=== PATIENT | female | born 1985 | race African-American/Black ===

== ENCOUNTER → 2016-06-14 | Emergency (ER) | payer SELFPAY ==
[~2016-06-14] VITALS: Ht 165.1 cm; Wt 95.3 kg
[~2016-06-14] MED LIST: AZITHROMYCIN 250 MG TABLET. PO ONE; CEFTRIAXONE 1GM IVPB FOR OMNI 50 ML IV ONE; CONTRAST GIVEN MC PRN; IOHEXOL 300 MG/ML 75 ML VIAL IV ONE; IV NORMAL SALINE 1000ML BAG 1,000 ML IV SCH; KETOROLAC TROMETHAMINE 30 MG/ML INJ. IV ONE; ONDANSETRON PF 4 MG/2 ML VIAL. IV ONE
[2016-06-14 04:59] VITALS: BP 145/96
[2016-06-14 05:19] LABS: BILIRUBIN,URINE NEGATIVE (NEG); GLUCOSE,URINE NEGATIVE (NEG); NITRITE,URINE NEGATIVE (NEG); PH,URINE 6.5; PROTEIN,URINE NEGATIVE (NEG-TRACE); UROBILINOGEN,URINE 0.2 mg/dL (0.2 mg/dL)
[2016-06-14 05:26] LABS: BASO # 0.2 x10^3/uL (0.0-0.2); BASO % 3 % (0-3); EOS % 0 % (0-3); HEMATOCRIT 36.6 % (36.0-47.0); LYMPH # 1.8 x10^3/uL (1.0-4.8); LYMPH % 31 % (24-48); MEAN CORPUSCULAR HEMOGLOBIN 27 pg (25-35); MEAN CORPUSCULAR HGB CONC 33 g/dL (31-37); MEAN CORPUSCULAR VOLUME 84 fL (79-100); MONO % 10 % (0-9); NEUT % 56 % (31-73); PLATELET COUNT 268 x10^3/uL (140-400); RED BLOOD COUNT 4.37 x10^6/uL (3.50-5.40); RED CELL DISTRIBUTION WIDTH 16.1 % (11.5-14.5); WHITE BLOOD COUNT 5.6 x10^3/uL (4.0-11.0)
[2016-06-14 05:30] LABS: CALCIUM 8.6 mg/dL (8.5-10.1); CREATININE 0.8 mg/dL (0.6-1.0); GFR 101.2; POTASSIUM 4.3 mmol/L (3.5-5.1)
[2016-06-14 05:32] LABS: BACTERIA,URINE FEW /HPF (0-FEW); RBC,URINE OCC /HPF (0-2); SQUAMOUS EPITHELIAL CELL,UR FEW /LPF
[2016-06-14 05:32] LABS: NEG OBC SER NEG; POS OBC SER POS
[2016-06-14 05:36] LABS: ALBUMIN 3.2 g/dL (3.4-5.0); ALBUMIN/GLOBULIN RATIO 0.7 (1.0-1.7); TOTAL BILIRUBIN 0.3 mg/dL (0.2-1.0); TOTAL PROTEIN 7.5 g/dL (6.4-8.2)
--- NOTE | 2016-06-14 06:38 | RAD ---
INDICATION: Abdomen pain. COMPARISON: None TECHNIQUE: Axial CT images obtained through the abdomen and pelvis. Intravenous contrast was utilized. One or more of the following individualized dose reduction techniques were utilized for this examination: 1. Automated exposure control; 2. Adjustment of the mA and/or kV according to patient size; 3. Use of iterative reconstruction technique. FINDINGS: Abdominal aorta not aneurysmal. No intrahepatic bile duct dilation. No peripancreatic edema. Spleen unremarkable. No hydronephrosis. No definite evidence of small bowel obstruction. Bladder unremarkable within limits of CT. The appendix is not well seen in its entirety. The uterus has a heterogenous appearance. Suspected exophytic mass off right anterior aspect of uterus with some calcifications within measuring up to about 45 millimeters. There is also a low attenuation region at the lower uterine segment versus adnexa on the right measuring up to 44 millimeters. IMPRESSION: No evidence of bowel obstruction. There is an apparent heterogenous mass off the anterior aspect of the uterus. Most common cause would be a fibroid. In addition there is a region of low-attenuation on either off of the lower uterine segment on the right or within the right adnexal region. These findings could be secondary to fibroids but pelvic ultrasound with transabdominal and transvaginal imaging could further evaluate and to ensure that there is not adnexal origin of the region of low-attenuation on the right. There is sclerosis adjacent to the left greater than right sacroiliac joint. Would correlate with symptoms of chronic sacroiliitis. Electronically signed by: Maxime Hamilton (Jun 14, 2016 06:36:48)
--- NOTE | 2016-06-14 07:25 | PHYS DOC ---
Past Medical History Past Medical History: No Pertinent History Past Surgical History: , Tubal ligation Alcohol Use: None Drug Use: None Adult General Chief Complaint Chief Complaint: ABDOMINAL PAIN HPI HPI Patient is a 31 year old female who presents here today complaining of right lower quadrant abdominal pain. Patient is concerned that she might have contracted an STD from her ex-boyfriend. Patient reports that she had broken up with her boyfriend however they got together and had sexual intercourse approximately 2-3 days ago. Patient reports she's not sure who he has been sleeping with 2 she is concerned that she might have contracted an STD from him. Patient denies any other symptomatology at this time. Patient has any fevers shakes chills nausea vomiting diarrhea dysuria frequency or urgency. Patient denies any vaginal discharge or vaginal bleeding. Patient's last menstrual period was May 25. Patient reports that she been tolerating by mouth as well. Patient's last by mouth intake was dinner time she ate some pork. Patient denies any history significant for hypertension diabetes liver longer kidney problems. Patient has had no surgeries other than in the past. Patient smokes she does not drink or do any drugs and is not allergic to any medications. Patient reports she has not had any STDs in the past. Patient's physical exam was unremarkable in the ER. Patient's pelvic exam was significant for some mild tenderness to palpation in her uterus. Patient did not have any cervical motion tenderness. Patient no adnexal masses or tenderness. There is no significant discharge from her cervical os or vaginal vault. She his abdomen was soft nondistended no rebound or guarding. Patient had mild tenderness to right lower quadrant. Patient is not exhibiting any signs or symptoms of be consistent with an acute surgical abdomen. Patient's ER workup was essentially unremarkable. Patient's pelvic exam was performed and cultures were sent. Given patient's concerned she was offered the option to receive empiric antibiotics here and wait until the cultures return. Patient is requesting to receive empiric antibiotics prior to being discharged from the ED. Patient was given IV Rocephin 1 g and Zithromax 1 g by mouth. Patient will be discharged home in stable condition to follow up with her primary care doctor for any further problems. Review of Systems Review of Systems Constitutional: Denies fever or chills [] Eyes: Denies change in visual acuity, redness, or eye pain [] HENT: Denies nasal congestion or sore throat [] All other review systems are negative except as documented in history of present illness portion. Current Medications Current Medications Current Medications Medications (Trade) Dose Ordered Sig/Edison Start Time Stop Time Status Last Admin Dose Admin Info (Do NOT chart on this entry -- for MONITORING) 1 each PRN DAILY PRN 06/14/16 05:15 06/16/16 05:14 Iohexol (Omnipaque 300 Mg/ml) 75 ml 1X ONCE 06/14/16 05:30 06/14/16 05:31 DC 06/14/16 05:50 75 ML Ketorolac Tromethamine (Toradol) 30 mg 1X ONCE 06/14/16 05:30 06/14/16 05:31 DC 06/14/16 05:19 30 MG Ondansetron HCl (Zofran) 4 mg 1X ONCE 06/14/16 05:30 06/14/16 05:31 DC 06/14/16 05:19 4 MG Sodium Chloride (Iv Sodium Chloride 0.9% 1000ml Bag) 1,000 ml @ 1,000 mls/hr Q1H 06/14/16 05:30 06/14/16 06:29 DC 06/14/16 05:19 1,000 MLS/HR Allergies Allergies Allergies Coded Allergies Type Severity Reaction Last Updated Verified No Known Drug Allergies 05/27/14 No Physical Exam Physical Exam Constitutional: Well developed, well nourished, no acute distress, non-toxic appearance. [] HENT: Normocephalic, atraumatic, bilateral external ears normal, oropharynx moist, no oral exudates, nose normal. [] Eyes: PERRLA, EOMI, conjunctiva normal, no discharge. [] Neck: Normal range of motion, no tenderness, supple, no stridor. [] Cardiovascular:Heart rate regular rhythm, no murmur [] Lungs & Thorax: Bilateral breath sounds clear to auscultation [] Abdomen: Bowel sounds normal, soft, no tenderness, no masses, no pulsatile masses. [] Skin: Warm, dry, no erythema, no rash. [] Back: No tenderness, no CVA tenderness. [] Extremities: No tenderness, no cyanosis, no clubbing, ROM intact, no edema. [] Neurologic: Alert and oriented X 3, normal motor function, normal sensory function, no focal deficits noted. [] Psychologic: Affect normal, judgement normal, mood normal. [] Current Patient Data Vital Signs Vital Signs Date Time Temp Pulse Resp B/P Pulse Ox O2 Delivery O2 Flow Rate FiO2 06/14/16 04:59 98.2 74 20 145/96 98 Room Air 98.2 Lab Values Laboratory Tests Test 06/14/16 03:48 06/14/16 04:42 06/14/16 05:10 POC Urine HCG, Qualitative Hcg negative (Negative) Urine Collection Type Unknown Urine Color Yellow Urine Clarity Clear Urine pH 6.5 Urine Specific Hooper 1.015 Urine Protein Negativemg/dL (NEG-TRACE) Urine Glucose (UA) Negativemg/dL (NEG) Urine Ketones (Stick) Negativemg/dL (NEG) Urine Blood Negative (NEG) Urine Nitrite Negative (NEG) Urine Bilirubin Negative (NEG) Urine Urobilinogen Dipstick 0.2mg/dL (0.2 mg/dL) Urine Leukocyte Esterase Moderate (NEG) Urine RBC Occ/HPF (0-2) Urine WBC 11-20/HPF (0-4) Urine Squamous Epithelial Cells Few/LPF Urine Bacteria Few/HPF (0-FEW) Urine Mucus Mod/LPF White Blood Count 5.6x10^3/uL (4.0-11.0) Red Blood Count 4.37x10^6/uL (3.50-5.40) Hemoglobin 12.0g/dL (12.0-15.5) Hematocrit 36.6% (36.0-47.0) Mean Corpuscular Volume 84fL (79-100) Mean Corpuscular Hemoglobin 27pg (25-35) Mean Corpuscular Hemoglobin Concent 33g/dL (31-37) Red Cell Distribution Width 16.1% (11.5-14.5) H Platelet Count 268x10^3/uL (140-400) Neutrophils (%) (Auto) 56% (31-73) Lymphocytes (%) (Auto) 31% (24-48) Monocytes (%) (Auto) 10% (0-9) H Eosinophils (%) (Auto) 0% (0-3) Basophils (%) (Auto) 3% (0-3) Neutrophils # (Auto) 3.1x10^3uL (1.8-7.7) Lymphocytes # (Auto) 1.8x10^3/uL (1.0-4.8) Monocytes # (Auto) 0.6x10^3/uL (0.0-1.1) Eosinophils # (Auto) 0.0x10^3/uL (0.0-0.7) Basophils # (Auto) 0.2x10^3/uL (0.0-0.2) Sodium Level 140mmol/L (136-145) Potassium Level 4.3mmol/L (3.5-5.1) Chloride Level 105mmol/L (98-107) Carbon Dioxide Level 26mmol/L (21-32) Anion Gap 9 (6-14) Blood Urea Nitrogen 11mg/dL (7-20) Creatinine 0.8mg/dL (0.6-1.0) Estimated GFR (Cockcroft-Gault) 101.2 BUN/Creatinine Ratio 14 (6-20) Glucose Level 97mg/dL (70-99) Calcium Level 8.6mg/dL (8.5-10.1) Total Bilirubin 0.3mg/dL (0.2-1.0) Aspartate Amino Transferase (AST) 22U/L (15-37) Alanine Aminotransferase (ALT) 20U/L (14-59) Alkaline Phosphatase 64U/L (46-116) Total Protein 7.5g/dL (6.4-8.2) Albumin 3.2g/dL (3.4-5.0) L Albumin/Globulin Ratio 0.7 (1.0-1.7) L Serum Test, Qualitative Negative (NEG) Laboratory Tests 06/14/16 05:10 Laboratory Tests 06/14/16 05:10 Microbiology 06/14/16 Wet Prep - Final, Complete EKG EKG [] Radiology/Procedures Radiology/Procedures [] Course & Med Decision Making Course & Med Decision Making Pertinent Labs and Imaging studies reviewed. (See chart for details) [] Dragon Disclaimer Dragon Disclaimer This electronic medical record was generated, in whole or in part, using a voice recognition dictation system. Departure Departure Impression: Primary Impression: STD exposure Additional Impression: Right lower quadrant abdominal pain Disposition: HOME, SELF-CARE Condition: IMPROVED Referrals: NO PCP (PCP) Patient Instructions: Abdominal Pain (Nonspecific), Sexually Transmitted Disease, [id number], Uterine Fibroid, [id number] Problem Qualifiers JOSE NICHOLS MD Jun 14, 2016 07:25
== END ==
LOC: ER 04:16
DX: R10.31 Right lower quadrant pain (principal); Z20.2 Contact with and (suspected) exposure to infections with a predominantly sexual mode of transmission; Z98.51 Tubal ligation status
CPT/HCPCS: 36415; 74177; 80053; 81001; 81025; 84703; 85027; 87086; 87491; 87591; 96361; 96365; 96375; 99285; J0690; J1885; J2405; J7030; Q0111; Q0144; Q9967

== ENCOUNTER 2017-04-09 06:21 | Emergency (ER) | payer SELFPAY ==
[2017-04-09 07:27] LABS: URINE HCG POC HCG NEGATIVE (Negative)
== END 2017-04-09 08:05 | disposition home or self-care (01) ==
LOC: ER 06:21
DX: S86.911A Strain of unspecified muscle(s) and tendon(s) at lower leg level, right leg, initial encounter (principal); Z98.51 Tubal ligation status; X58.XXXA Exposure to other specified factors, initial encounter; Y93.02 Activity, running; Y92.89 Other specified places as the place of occurrence of the external cause; Y99.8 Other external cause status
CPT/HCPCS: 73564; 81025; 99284

== ENCOUNTER 2017-07-08 09:14 | Emergency (ER) | payer SELFPAY | END 2017-07-08 10:33 | disposition home or self-care (01) | LOC: ER 09:14 | DX: M25.561 Pain in right knee (principal); Z98.51 Tubal ligation status; W19.XXXA Unspecified fall, initial encounter; Y93.89 Activity, other specified; Y92.89 Other specified places as the place of occurrence of the external cause; Y99.8 Other external cause status | CPT/HCPCS: 73562; 99284 ==

== ENCOUNTER 2018-12-08 19:19 | Emergency (ER) | payer SELFPAY ==
[~2018-12-08] VITALS: Ht 167.6 cm; Wt 103.9 kg
[2018-12-08 19:39] VITALS: BP 125/83
--- NOTE | 2018-12-08 19:58 | PHYS DOC ---
Past Medical History Past Medical History: No Pertinent History Past Surgical History: , Tubal ligation Alcohol Use: None Drug Use: None Adult General Chief Complaint Chief Complaint: BREAST PROBLEM HPI HPI Patient is a 33 year old female who presents with 1 week of left breast areola pain, swelling and redness around areola. Denies fevers or discharge from the breast. Review of Systems Review of Systems Integument: Left breast pain and swelling. Denies rash or skin lesions [] All other systems were reviewed and found to be within normal limits, except as documented in this note. Current Medications Current Medications Current Medications Medications (Trade) Dose Ordered Sig/Edison Start Time Stop Time Status Last Admin Dose Admin Ibuprofen (Motrin) 800 mg 1X ONCE 12/08/18 20:00 12/08/18 20:01 DC 12/08/18 20:04 800 MG Allergies Allergies Allergies Coded Allergies Type Severity Reaction Last Updated Verified No Known Drug Allergies 05/27/14 No Physical Exam Physical Exam Constitutional: Well developed, well nourished, no acute distress, non-toxic appearance. [] Neck: Normal range of motion, no tenderness, supple, no stridor. [] Skin: Left breast areolar redness and tenderness. Warm, dry, no erythema, no rash. [] Neurologic: Alert and oriented X 3, normal motor function, normal sensory function, no focal deficits noted. [] Psychologic: Affect normal, judgement normal, mood normal. [] Current Patient Data Vital Signs Vital Signs Date Time Temp Pulse Resp B/P (MAP) Pulse Ox O2 Delivery O2 Flow Rate FiO2 12/08/18 19:39 97.8 78 18 125/83 (97) 99 Room Air 97.8 EKG EKG [] Radiology/Procedures Radiology/Procedures [] Impressions: [facility] [address] [place] [address] IMAGING REPORT Signed PATIENT: SUSY SMILEY LACCOUNT: [id number] : 1985 LOCATION: ER AGE: 33 SEX: F EXAM STATUS: REG ER ORD. PHYSICIAN: NORA ACOSTA APRN REASON: pain, sweling and redness PROCEDURE: BREAST LEFT Exam: Ultrasound breast left Indication: Pain, swelling and redness Technique: Real-time grayscale and color Doppler images of the left breast were obtained by the department booking manager. Comparisons: None FINDINGS: Approximately 4:00 at the left breast 2 cm from the nipple there is a rounded hypoechoic structure measuring 1.2 x 1.0 cm which demonstrates increased posterior acoustic enhancement and mild internal vascularity. Posterior to the left nipple there is a 1.6 cm heterogenous leg echogenic masslike structure with internal vascularity. IMPRESSION: 1. A 1.6 cm heterogenous mass like structure posterior to the left nipple. Correlation with mammogram and evaluation breast clinic is recommended. 2. Additionally, there is a 1.2 x 1.0 cm complex cystic lesion in the left breast as described above. This can also be further evaluated at that time. 3. No fluid collection to suggest abscess. Electronically signed by: Hesham Ma MD (12/08/2018 9:27 PM) [facility] DICTATED and SIGNED BY: HESHAM MA MD DATE: 12/08/182126 Course & Med Decision Making Course & Med Decision Making Patient is a 33 year old female who presents with 1 week of left breast areola pain, swelling and redness around areola. Denies fevers or discharge from the breast. The redness extended from the areola about 2mm around the top half. There is severe tenderness to palpation in feels like a hard knot about nickel sized. No drainage coming from the nipple. Afebrile.Vital sign are wnl. Patient rates her pain a 10. She states she has not taken any medications. Patient did drive here with her 2 young kids I cannot give her the narcotic pain medication here in the ED, she finds arrived. Patient states understanding of this. I have ordered her ibuprofen. US shows 1. A 1.6 cm heterogenous mass like structure posterior to the left nipple. Correlation with mammogram and evaluation breast clinic is recommended. 2. Additionally, there is a 1.2 x 1.0 cm complex cystic lesion in the left breast as described above. This can also be further evaluated at that time. 3. No fluid collection to suggest abscess. Patient to follow up with primary care provider. I will give the patient Keflex and pain medication. Dragon Disclaimer Dragon Disclaimer This electronic medical record was generated, in whole or in part, using a voice recognition dictation system. Departure Departure Impression: Primary Impression: Breast pain in female Disposition: 01 HOME, SELF-CARE Condition: STABLE Referrals: NO PCP (PCP) Patient Instructions: Breast Cyst Additional Instructions: Follow up with primary care provider or your knowledge architect for a breast exam and for mammogram. Take medications as prescribed. Trying using a heating pad on the breast to help with pain. Scripts Hydrocodone/Apap 5-325 (NORCO 5-325 TABLET) 1 Each Tablet 1 TAB PO PRN Q6HRS PRN for PAIN, #10 TAB 0 Refills Prov: NORA ACOSTA APRN 12/08/18 Cephalexin (KEFLEX) 500 Mg Capsule 500 MG PO QID for 10 Days, #40 CAP Prov: NORA ACOSTA APRN 12/08/18 NORA ACOSTA APRN Dec 08, 2018 19:58
[2018-12-08] MEDS ORDERED: IBUPROFEN 400 MG TABLET. PO ONE (20:00)
--- NOTE | 2018-12-08 21:30 | RAD ---
Exam: Ultrasound breast left Indication: Pain, swelling and redness Technique: Real-time grayscale and color Doppler images of the left breast were obtained by the department rn hemodialysis charge. Comparisons: None FINDINGS: Approximately 4:00 at the left breast 2 cm from the nipple there is a rounded hypoechoic structure measuring 1.2 x 1.0 cm which demonstrates increased posterior acoustic enhancement and mild internal vascularity. Posterior to the left nipple there is a 1.6 cm heterogenous leg echogenic masslike structure with internal vascularity. IMPRESSION: 1. A 1.6 cm heterogenous mass like structure posterior to the left nipple. Correlation with mammogram and evaluation breast clinic is recommended. 2. Additionally, there is a 1.2 x 1.0 cm complex cystic lesion in the left breast as described above. This can also be further evaluated at that time. 3. No fluid collection to suggest abscess. Electronically signed by: Hesham Riddle MD (12/08/2018 9:27 PM) [facility]
[2018-12-08] MEDS ORDERED: CEPH-264 PO (21:37)
[2018-12-08] MEDS ORDERED: HYDR-3164 PO (21:37)
== END 2018-12-08 21:57 | disposition home or self-care (01) ==
LOC: ER 19:19
DX: N64.4 Mastodynia (principal); Z98.890 Other specified postprocedural states; Z98.51 Tubal ligation status
CPT/HCPCS: 76641; 99284